=== PATIENT | female | born 1975 | race Caucasian/White ===

== ENCOUNTER → 2016-12-15 | Outpatient (CLI) | payer BC, OTHER ==
[~2016-12-15] MED LIST: AMLO10TA2 PO; ARMOUR THYROID PO; CETI-158 PO; CIPR250T27 PO; CYCL-259 PO; FLUC150T2 PO; GABA600T2 PO; MONT10TA6 PO; PANT40TA5 PO; VITA1TAB3 PO
[2016-12-15 09:38] LABS: HEMATOCRIT 39.4 % (34.6-47.8); HEMOGLOBIN 13.1 g/dL (11.7-16.4); WHITE BLOOD COUNT 4.2 x10^3/uL (3.4-10)
[2016-12-15 09:49] LABS: BLOOD UREA NITROGEN 15 mg/dL (7-18)
== END | disposition home or self-care (01) ==
LOC: STAR 08:23
PROVIDERS: ATTEND Obstetrics & Gynecology Gynecology
DX: Z01.818 Encounter for other preprocedural examination (principal); N39.3 Stress incontinence (female) (male); N92.0 Excessive and frequent menstruation with regular cycle; R10.2 Pelvic and perineal pain
CPT/HCPCS: 36415; 80048; 81001; 84703; 85025

== ENCOUNTER 2016-12-19 05:44 | Day surgery (SDC) | payer BC, OTHER ==
[~2016-12-19] VITALS: Ht 162.6 cm; Wt 110.4 kg
[~2016-12-19 05:44] MED LIST changes: -CIPR250T27 PO; -FLUC150T2 PO
[2016-12-19] MEDS ORDERED: FLUC150T2 PO (06:23)
[2016-12-19] MEDS ORDERED: CIPR250T27 PO (06:23)
[2016-12-19] MEDS ORDERED: LACTATED RINGERS 1,000 ML IV SCH (06:23)
[2016-12-19 06:24] VITALS: BP 140/93
[2016-12-19] MEDS ORDERED: FLUORESCEIN SODIUM 500 MG/5 ML ONE (06:41)
[2016-12-19] MEDS ORDERED: LIDOCAINE/PF 1%, 30ML ONE (06:41)
[2016-12-19] MEDS ORDERED: EPINEPHRINE 1 MG/ML, 1ML ONE (06:41)
[2016-12-19] MEDS ORDERED: NEOMY/POLYMYXIN B GU IRR. 1 ML IRRIG ONE (06:42)
[2016-12-19] MEDS ORDERED: THROMBIN 5,000 UNIT VIAL TP ONE (06:47)
[2016-12-19] MEDS ORDERED: MIDAZOLAM 1 MG/ML, 2ML ONE ×2 (06:56→09:48)
[2016-12-19] MEDS ORDERED: FENTANYL PF 250 MCG/5ML ONE (06:56)
[2016-12-19] MEDS ORDERED: LABETALOL 5MG/ML, 20ML IV PRN (08:30)
[2016-12-19] MEDS ORDERED: ACETAMINOPHEN 325 MG TABLET PO PRN (08:30)
[2016-12-19] MEDS ORDERED: ONDANSETRON 2MG/ML, 2ML IVPush PRN ×2 (08:30→13:30)
[2016-12-19] MEDS ORDERED: hydrALAzine 20 MG/ML, 1ML IV PRN (08:30)
[2016-12-19] MEDS ORDERED: OXYcodone 5 MG/5 ML ORAL.SOL UDC PO PRN (08:30)
[2016-12-19] MEDS ORDERED: METOCLOPRAMIDE 5 MG/ML, 2ML IV PRN (08:30)
[2016-12-19] MEDS ORDERED: FENTANYL PF 100 MCG/2ML ONE ×2 (09:22→09:43)
[2016-12-19] MEDS: FENTANYL PF 100 MCG/2ML IV PRN ×4 (09:25→10:25)
[2016-12-19] MEDS ORDERED: HYDROmorphone 1 MG/ML, 1ML ONE ×2 (09:32→09:43)
[2016-12-19] MEDS ORDERED: ONDANSETRON 2MG/ML, 2ML ONE ×2 (09:32→16:36)
[2016-12-19] MEDS: HYDROmorphone 1 MG/ML, 1ML IV PRN ×4 (09:35→10:20)
[2016-12-19] MEDS: MIDAZOLAM 1 MG/ML, 2ML IV PRN ×2 (10:00→10:05)
[2016-12-19] MEDS ORDERED: ACETAMINOPHEN 325 MG/10.15 ML UDC ONE (10:29)
[2016-12-19] MEDS ORDERED: ACETAMINOPHEN 650 MG/20.3 ML UDC ONE (10:29)
[2016-12-19] MEDS ORDERED: OXYcodone 5 MG/5 ML ORAL.SOL UDC ONE (10:29)
[2016-12-19] MEDS: OXYcodone/APAP 7.5/325MG TABLET PO PRN ×2 (13:36→15:20)
[2016-12-19] MEDS ORDERED: SUCCINYLCHOLINE 20 MG/ML, 10ML ONE (16:36)
[2016-12-19] MEDS ORDERED: PROPOFOL 10 MG/ML, 20ML ONE (16:36)
[2016-12-19] MEDS ORDERED: CEFAZOLIN 1,000 MG ONE (16:36)
[2016-12-19] MEDS ORDERED: ROCURONIUM 10 MG/ML ONE (16:36)
[2016-12-19] MEDS ORDERED: DEXAMETHASONE 4 MG/ML, 1ML ONE (16:36)
[2016-12-19] MEDS ORDERED: KETOROLAC 30 MG/1 ML ONE (16:36)
== END 2016-12-19 16:30 ==
LOC: OUT 05:44
PROVIDERS: ATTEND Obstetrics & Gynecology Gynecology
DX: N92.0 Excessive and frequent menstruation with regular cycle (principal); N39.3 Stress incontinence (female) (male); I10 Essential (primary) hypertension; Z87.39 Personal history of other diseases of the musculoskeletal system and connective tissue
CPT/HCPCS: 36415; 57288; 58270; 85014; 88307; C1771; J0171; J0330; J0690; J1100; J1170; J1885; J2250; J2405; J2704; J3010; J3490; J7120